=== PATIENT | male | born 1975 | race Caucasian/White ===

== ENCOUNTER 2016-12-02 20:53 | Emergency (ER) | payer SELFPAY ==
[2016-12-02 21:01] VITALS: BP 151/77; PULSE 86; RESP 16; TEMP 97.7; O2SAT 93
--- NOTE | 2016-12-02 21:31 | EDPHY ---
H & P Time Seen by Provider: 12/02/16 21:14 HPI/ROS: This is a 41-year-old presenting to the emergency department complaining of insect bites that may have turned into skin infection. Patient states he is homeless, sleeps in shelters or in the park. Patient reports itchy skin, some open sores to hands. No fever chills. REVIEW OF SYSTEMS: Constitutional: No fever chills Respiratory: No cough Gastrointestinal: No nausea no vomiting Musculoskeletal: No joint pain Skin: Insect bite Neurological: No headache or dizziness Smoking Status: Current every day smoker Physical Exam: CONSTITUTIONAL: patient appeared well nourished, non-ill appearing and normally developed. No acute distress. Vital signs as documented. HEENT: Normocephalic atraumatic NECK: FROM without pain RESP: Non-labored resp effort NEURO: AAOx3 EXTREMITIES: FROM without pain or difficulty. SKIN: Warm and dry, few lesions noted to upper extremities with excoriation and some redness PSYCH: Normal affect, calm, no distress Constitutional: Initial Vital Signs Temperature (C) 36.5 C 12/02/16 20:57 Heart Rate 86 12/02/16 20:57 Respiratory Rate 16 12/02/16 20:57 Blood Pressure 151/77 H 12/02/16 20:57 O2 Sat (%) 93 12/02/16 20:57 O2 Delivery Mode Room Air Allergies/Adverse Reactions: No Known Allergies Allergy (Unverified 12/02/16 21:00) Home Medications: Medication Instructions Recorded Cephalexin [Keflex (*)] 500 mg PO TID #21 cap 12/02/16 Medical Decision Making ED Course/Re-evaluation: Discussed plan of care: Ibuprofen 600 mg, Keflex 500 mg initial dose, food tray given. Discharge home---> stable, discussed discharge instructions Differential Diagnosis: Differential diagnosis considered but not limited to scabies, bedbugs and abscess - Data Points Medications Given: Discontinued Medications Cephalexin HCl (Keflex) 500 mg PO EDNOW ONE PRN Reason: Protocol Stop: 12/02/16 21:35 Last Admin: 12/02/16 21:38 Dose: 500 mg Ibuprofen (Motrin) 600 mg PO ONCE ONE Stop: 12/02/16 21:35 Last Admin: 12/02/16 21:38 Dose: 600 mg Departure - Departure Disposition: Home, Routine, Self-Care Clinical Impression: Insect bite Qualifiers: Encounter type: initial encounter Qualified Code(s): W57.XXXA - Bitten or stung by nonvenomous insect and other nonvenomous arthropods, initial encounter Cellulitis Qualifiers: Site of cellulitis: other site Qualified Code(s): L03.818 - Cellulitis of other sites Condition: Good Instructions: Cellulitis (ED) Additional Instructions: 1. Trying not to scratch areas, as you can worsen infection 2. Keep wounds clean and dry 3. You can take Benadryl as needed to help decrease in skin irritation 4. Take antibiotics as prescribed Referrals: [facility],. [Clinic] - As per Instructions Prescriptions: Cephalexin [Keflex (*)] 500 mg PO TID #21 cap
[2016-12-02] MEDS ORDERED: IBUPROFEN 600 MG TAB PO ONE (21:34)
[2016-12-02] MEDS ORDERED: CEPHALEXIN 500 MG CAP PO ONE (21:34)
[2016-12-02] MEDS ORDERED: CEPHALEXIN 500MG PREPACK#4 BTL TAKEHOME ONE (21:48)
== END 2016-12-02 21:56 | disposition home or self-care (01) ==
DX: L03.113 Cellulitis of right upper limb (principal); L03.114 Cellulitis of left upper limb; F17.200 Nicotine dependence, unspecified, uncomplicated; W57.XXXA Bitten or stung by nonvenomous insect and other nonvenomous arthropods, initial encounter

== ENCOUNTER 2016-12-19 13:28 | Emergency (ER) | payer SELFPAY ==
--- NOTE | 2016-12-19 13:34 | EDPHY ---
H & P - Medical/Surgical History Hx Asthma: No Hx Chronic Respiratory Disease: No Hx Diabetes: No Hx Cardiac Disease: No Hx Renal Disease: No Hx Cirrhosis: No Hx Alcoholism: No Hx HIV/AIDS: No Hx Splenectomy or Spleen Trauma: No Other PMH: PTSD, SI/HI, schizo - Social History Smoking Status: Current every day smoker HPI/ROS: CHIEF COMPLAINT: " I want to go on a killing spree and let the circulation tender finish me off" HISTORY OF PRESENT ILLNESS: 41 year old male history of schizophrenia, office medication, arrives from [facility] on an M1 hold after endorsing suicidal and homicidal ideations with plan to "go on a killing spree and let the circulation tender finish me off." He denies self-injury. Admits to marijuana use. Has no complaints of physical pain. Denies hallucination PRIMARY CARE PROVIDER: none REVIEW OF SYSTEMS: A ten point review of systems was performed and is negative with the exception of the items mentioned in the HPI PAST MEDICAL & SURGICAL HISTORY: Schizophrenia SOCIAL HISTORY: homeless PHYSICAL EXAM (Prior to examination, patient consented to physical exam, hands were washed and my usual and customary physical exam procedures followed) 1) GENERAL: Well-developed, well-nourished, alert and oriented. Appears to be in no acute distress. 2) HEAD: Normocephalic, atraumatic 3) HEENT: Pupils equal, round, reactive to light bilaterally. Sclera anicteric. 4) NECK: Full range of motion, no meningeal signs. 5) LUNGS: Clear auscultation bilaterally 6) HEART: Regular rate and rhythm, no murmur, no heave, no gallop. 7) ABDOMEN: No guarding, no rebound, no focal tenderness, 8) MUSCULOSKELETAL: No peripheral edema or discoloration. 9) BACK: no visual or palpable abnormality. 10) SKIN: No rash, no petechiae. 11) Psychiatric: Patient is oriented X 3, he is agitated with flight of ideas DIFFERENTIAL DIAGNOSIS: no particular order including but not limited to suicidal ideation, homicidal ideation, psychosis, medication noncompliance (Laura,Anthony Card) Constitutional: Initial Vital Signs Temperature (C) 36.4 C 12/19/16 13:46 Heart Rate 107 H 12/19/16 13:46 Respiratory Rate 18 12/19/16 13:46 Blood Pressure 115/93 H 12/19/16 13:46 O2 Sat (%) 94 12/19/16 13:46 O2 Delivery Mode Room Air Allergies/Adverse Reactions: No Known Allergies Allergy (Unverified 12/02/16 21:00) Home Medications: Medication Instructions Recorded Cephalexin [Keflex (*)] 500 mg PO TID #21 cap 12/02/16 Medical Decision Making ED Course/Re-evaluation: 4:55 p.m.: Patient has increasing agitation. 5:00 p.m.: Care turned over to Dr. Dev Rodriguez awaiting TLC evaluation ( Anthony Sanchez) 23:00 Patient signed out to me by Dr. Rodriguez pending mental health evaluation. [address] Sagastume pending evaluation. No issues overnight. ( Tan Dominique) 0 700 this patient was seen by mental health and felt appropriate for outpatient treatment of schizophrenia. The patient denies suicidal or homicidal ideation. He states that he simply wants to get back on his usual psychiatric medications. The plan is for him to go to [facility] and they will help him fill his psychiatric medications. (Mercedes Sagastume) Other Provider: Patient is sitting calmly. Awaiting evaluation. He is medically cleared. Care transferred to Dr. Dominique 11:00 p.m.. (Dev Rodriguez) - Data Points Laboratory Results: Laboratory Results 12/19/16 14:05 12/19/16 14:05 Medications Given: Discontinued Medications Lorazepam (Ativan) 1 mg PO EDNOW ONE Stop: 12/19/16 16:57 Last Admin: 12/19/16 17:00 Dose: 1 mg Olanzapine (Zyprexa Zydis) 10 mg PO EDNOW ONE Stop: 12/19/16 16:59 Last Admin: 12/19/16 17:01 Dose: 10 mg Departure - Departure Clinical Impression: Suicidal ideation, Homicidal ideation Schizophrenia Qualifiers: Schizophrenia type: unspecified Qualified Code(s): F20.9 - Schizophrenia, unspecified Condition: Good Referrals: [facility] [Outside] - As per Instructions (Go directly to [facility]. )
[2016-12-19 14:18] LABS: % IMMATURE GRANULYOCYTES 0.3 % (0.0-1.1); ABSOLUTE IMMATURE GRANULOCYTES 0.02 10^3/uL (0.00-0.10); ADD DIFF? NO; ADD MORPH? NO; ADD SCAN? NO; ATYPICAL LYMPHOCYTE FLAG 30 (0-99); FRAGMENT RBC FLAG 0 (0-99); HEMATOCRIT 51.1 % (40.0-51.0); HEMOGLOBIN 17.8 g/dL (13.7-17.5); LEFT SHIFT FLG 0 (0-99); LIPEMIA HEMOLYSIS FLAG 90 (0-99); MEAN CELL HEMOGLOBIN 30.1 pg (27.9-34.1); MEAN CELL HEMOGLOBIN CONCENTR. 34.8 g/dL (32.4-36.7); MEAN CELL VOLUME 86.5 fL (81.5-99.8); MEAN PLATELET VOLUME 9.8 fL (8.7-11.7); PLATELET CLUMPS FLAG 0 (0-99); PLATELET COUNT 358 10^3/uL (150-400); RED BLOOD CELL COUNT 5.91 10^6/uL (4.40-6.38); RED CELL DISTRIBUTION WIDTH 12.9 % (11.5-15.2)
[2016-12-19 14:45] LABS: ANION GAP 13 mEq/L (8-16); CALCIUM 10.5 mg/dL (8.5-10.4); CARBON DIOXIDE 24 mEq/l (22-31); CHLORIDE 104 mEq/L (97-110); CREATININE 0.9 mg/dL (0.7-1.3); ETHANOL SERUM < 10 mg/dL (0-10); GLOMERULAR FILTRATION RATE > 60; GLUCOSE 92 mg/dL (70-100); POTASSIUM 4.9 mEq/L (3.5-5.2); SALICYLATE < 1.0 mg/dL (2.0-20.0); SODIUM 141 mEq/L (134-144)
[2016-12-19] MEDS ORDERED: LORazepam 1 MG TAB ONE (16:55)
[2016-12-19] MEDS ORDERED: LORazepam 1 MG TAB PO ONE (16:56)
[2016-12-19] MEDS ORDERED: OLANZapine DISINTEGR 10 MG TAB PO ONE (16:58)
[2016-12-19] MEDS ORDERED: OLANZapine DISINTEGR 10 MG TAB ONE (16:58)
[2016-12-19 23:13] VITALS: O2SAT 93
[2016-12-20 09:39] VITALS: BP 102/77; PULSE 99; RESP 18; TEMP 98.2
== END 2016-12-20 10:00 | disposition home or self-care (01) ==
LOC: EDUNIT#
DX: R45.851 Suicidal ideations (principal); R45.850 Homicidal ideations; F20.9 Schizophrenia, unspecified; F17.200 Nicotine dependence, unspecified, uncomplicated
CPT/HCPCS: 80305; G0480

== ENCOUNTER 2016-12-28 17:59 | Emergency (ER) | payer SELFPAY ==
[2016-12-28 18:06] VITALS: O2SAT 97
[2016-12-28] MEDS ORDERED: SULFAMETHOX/TMP 800/160 MG 1 TAB PO ONE (19:20)
--- NOTE | 2016-12-28 19:23 | EDPHY ---
H & P Stated Complaint: Poss MRSA outbreak on face x several weeks Time Seen by Provider: 12/28/16 19:18 HPI/ROS: CHIEF COMPLAINT: Facial infection HISTORY OF PRESENT ILLNESS: Patient is a 41-year-old schizophrenic man with a history of multiple MRSA infections. He comes concerned about a large pimple on his face. He is concerned that it is an MRSA infection. He states that he was here last week for a similar one on the other side of his face and given a prescription for Bactrim but lost it. States that he does not drink alcohol. REVIEW OF SYSTEMS: Constitutional: denies: chills, fever, recent illness, recent injury EENTM: denies: blurred vision, double vision, nose congestion Respiratory: denies: cough, shortness of breath Cardiac: denies: chest pain, irregular heart rate, lightheadedness, palpitations Gastrointestinal/Abdominal: denies: abdominal pain, diarrhea, nausea, vomiting, blood streaked stools Genitourinary: denies: dysuria, frequency, hematuria, pain Musculoskeletal: denies: joint pain, muscle pain Skin: See HPI Neurological: denies: headache, numbness, paresthesia, tingling, dizziness, weakness Hematologic/Lymphatic: denies: blood clots, easy bleeding, easy bruising Immunologic/allergic: denies: HIV/AIDS, transplant EXAM: GENERAL: Well-appearing, well-nourished and in no acute distress. HEAD: Atraumatic, normocephalic. EYES: Pupils equal round and reactive to light, extraocular movements intact, sclera anicteric, conjunctiva are normal. ENT: TMs normal, nares patent, oropharynx clear without exudates. Moist mucous membranes. NECK: Normal range of motion, supple without lymphadenopathy or JVD. LUNGS: Breath sounds clear to auscultation bilaterally and equal. No wheezes rales or rhonchi. HEART: Regular rate and rhythm without murmurs, rubs or gallops. ABDOMEN: Soft, nontender, normoactive bowel sounds. No guarding, no rebound. No masses appreciated. BACK: No CVA tenderness, no spinal tenderness, step-offs or deformities EXTREMITIES: Normal range of motion, no pitting or edema. No clubbing or cyanosis. NEUROLOGICAL: Cranial nerves II through XII grossly intact. Normal speech, normal gait. 5/5 strength, normal movement in all extremities, normal sensation PSYCH: Normal mood, normal affect. SKIN: Large zit like abscess, inflamed to, drained previously Source: Patient Exam Limitations: No limitations - Personal History Current Tetanus Diphtheria and Acellular Pertussis (TDAP): Unsure - Medical/Surgical History Hx Asthma: No Hx Chronic Respiratory Disease: No Hx Diabetes: No Hx Cardiac Disease: No Hx Renal Disease: No Hx Cirrhosis: No Hx Alcoholism: No Hx HIV/AIDS: No Hx Splenectomy or Spleen Trauma: No Other PMH: PTSD, SI/HI, schizo, recurrent MRSA infections - Family History Significant Family History: No pertinent family hx - Social History Smoking Status: Current every day smoker Alcohol Use: Sober Drug Use: Marijuana Constitutional: Initial Vital Signs Temperature (C) 36.4 C 12/28/16 18:03 Heart Rate 96 12/28/16 18:03 Respiratory Rate 18 12/28/16 18:03 Blood Pressure 118/88 H 12/28/16 18:03 O2 Sat (%) 97 12/28/16 18:03 O2 Delivery Mode Room Air Allergies/Adverse Reactions: No Known Allergies Allergy (Verified 12/28/16 18:03) Home Medications: Medication Instructions Recorded Sulfamethox/Tmp 800/160 mg 1 tab PO BID #14 tab 12/28/16 [Bactrim Ds] Medical Decision Making ED Course/Re-evaluation: The patient has a large pimple. He is requesting a refill of antibiotics. I will start her on Bactrim. I warned him against drinking. He understands this plan. We will give him his initial dose now. Differential Diagnosis: Partial list of the Differential diagnosis considered include but were not limited to; abscess, acne, MRSA and although unlikely based on the history and physical exam, I also considered sepsis, cellulitis. I discussed these differential diagnoses and the plan with the patient as well as the usual and expected course. The patient understands that the diagnosis is provisional and that in medicine we are not always correct and that further workup is often warranted. Usual and customary warnings were given. All of the patient's questions were answered. The patient was instructed to return to the emergency department should the symptoms at all worsen or return, otherwise to followup with the physician as we discussed. - Data Points Medications Given: Discontinued Medications Trimethoprim/Sulfamethoxazole (Bactrim Ds) 1 ea PO EDNOW ONE PRN Reason: Protocol Stop: 12/28/16 19:21 Last Admin: 12/28/16 19:42 Dose: 1 ea Departure - Departure Disposition: Home, Routine, Self-Care Clinical Impression: Acne Qualifiers: Acne type: unspecified acne Qualified Code(s): L70.9 - Acne, unspecified Condition: Fair Instructions: Acne (ED) Referrals: NONE *PRIMARY CARE P,. [Primary Care Provider] - As per Instructions [facility],. [Clinic] - As per Instructions Prescriptions: Sulfamethox/Tmp 800/160 mg [Bactrim Ds] 1 tab PO BID #14 tab
[2016-12-28 19:58] VITALS: BP 133/92; PULSE 92; RESP 12; TEMP 98.2
== END 2016-12-28 19:57 | disposition home or self-care (01) ==
DX: L70.9 Acne, unspecified (principal); F17.200 Nicotine dependence, unspecified, uncomplicated

== ENCOUNTER 2017-01-01 18:11 | Emergency (ER) | payer SELFPAY ==
[2017-01-01 18:28] VITALS: BP 132/92; PULSE 92; RESP 18; TEMP 98.1; O2SAT 96
--- NOTE | 2017-01-01 19:27 | EDPHY ---
H & P HPI/ROS: Chief complaint: Bugs on patient History of present illness: This is a 41-year-old male who presents to the emergency department concerned he has bugs on him. Patient is homeless, living out of his van currently. Has had recurrent bouts of infestations with bugs. He has been treated with permethrin multiple times. He states after treatment permethrin symptoms will improve within return. He is a cleaned his clothes extensively. He is no longer staying in the halfway. He is concerned as symptoms persist. He denies other associated signs or symptoms including no fevers, no concern for secondary infections. Smoking Status: Current every day smoker Physical Exam: General Appearance: Alert and no distress. Eyes: Pupils equal and round no injection. Respiratory: Chest is nontender, lungs are clear to auscultation. Cardiac: regular rate and rhythm. Musculoskeletal: Extremities have full range of motion and are nontender. Skin: Patient appears to have burrows in his skin primarily to his hands and arms. There is excoriation around some of them. No evidence of secondary infection. Further there appears to be a lice on patient. Constitutional: Initial Vital Signs Temperature (C) 36.7 C 01/01/17 18:20 Heart Rate 92 01/01/17 18:20 Respiratory Rate 18 01/01/17 18:20 Blood Pressure 132/92 H 01/01/17 18:20 O2 Sat (%) 96 01/01/17 18:20 Allergies/Adverse Reactions: No Known Allergies Allergy (Verified 01/01/17 18:24) Home Medications: Medication Instructions Recorded Permethrin 5% [Elimite 5%] 60 elinor TP ONCE #1 cream 01/01/17 Sulfamethoxazole/Trimethoprim 01/01/17 [Sulfamethoxazole-Tmp DS] MDM/Departure - MDM ED Course/Re-evaluation: Patient seen under the supervision of my secondary supervising physician Dr. Dev Rodriguez. Patient concerned he has an infestation with insects. Physical examination is concerning for scabies. No signs of secondary infection such as cellulitis. Patient is prescribed permethrin. Home care is discussed including laundering clothes and linens and thoroughly cleaning the van he is sleeping in. He is asked to follow up with [facility] for recheck. Return precautions are given. Patient voiced understanding and agreement with plan. - Depart Disposition: Home, Routine, Self-Care Clinical Impression: Rash Condition: Good Instructions: Acute Rash (ED) Additional Instructions: Follow-up with a primary care doctor for recheck If symptoms worsen or new symptoms develop return to the emergency room for recheck Prescriptions: Permethrin 5% [Elimite 5%] 60 elinor TP ONCE #1 cream Referrals: NONE *PRIMARY CARE P,. [Primary Care Provider] - As per Instructions [facility],. [Clinic] - As per Instructions
== END 2017-01-01 19:31 | disposition home or self-care (01) ==
DX: R21 Rash and other nonspecific skin eruption (principal); F17.200 Nicotine dependence, unspecified, uncomplicated